=== PATIENT | male | born 1985 | race Caucasian/White ===

== ENCOUNTER 2017-04-06 12:04 | Emergency (ER) | payer MEDICARE, MEDICAID ==
[2017-04-06 12:37] VITALS: BP 129/72
--- NOTE | 2017-04-06 12:54 | UC ---
Ear Complaint HPI - HPI Summary HPI Summary: right ear pain episodic since "age 4." He gets about 5 times a year. NO drainage. no obvious hearing loss. No fever. he had this same problem about 2-3 weeks ago and z pack completely resolved it.. he has never seen an ENT. - History of Current Complaint Chief Complaint: UCEar Stated Complaint: RIGHT EAR PAIN Time Seen by Provider: 04/06/17 12:36 Hx Obtained From: Patient Onset/Duration: Gradual Onset, Lasting Days Severity Initially: Mild Severity Currently: Moderate Aggravating Factors: Nothing Alleviating Factors: OTC Meds Associated Signs/Symptoms: Negative: Hearing Loss, Foreign Body Sensation, Trauma to Ear, Swelling @, URI Symptoms - Allergies/Home Medications Allergies/Adverse Reactions: Allergies Allergy/AdvReac Type Severity Reaction Status Date / Time Cefaclor [From [facility]] Allergy Rash Verified 04/06/17 12:37 Sulfamethoxazole Allergy Rash Verified 04/06/17 12:37 w/Trimethoprim [From [facility]] Home Medications: Home Medications Ibuprofen TAB* [Advil TAB*] 400 mg PO Q6H 04/06/17 [History Confirmed 04/06/17] PMH/Surg Hx/FS Hx/Imm Hx Previously Healthy: No - frequent ear pain. - Surgical History Surgical History: Yes Surgery Procedure, Year, and Place: hernia repair. ear tubes. cyst removed from buttock - Family History Known Family History: Positive: Hypertension - Social History Occupation: Employed Full-time Alcohol Use: None Substance Use Type: None Smoking Status (MU): Never Smoked Tobacco Household Exposure Type: Cigarettes - Immunization History Most Recent Influenza Vaccination: NOT IN 2016 Review of Systems ENT: Ear Ache All Other Systems Reviewed And Are Negative: Yes Physical Exam Triage Information Reviewed: Yes Appearance: Well-Appearing, No Pain Distress, Well-Nourished Vital Signs: Initial Vital Signs Temp 98.7 F 04/06/17 12:30 Pulse 69 04/06/17 12:30 Resp 15 04/06/17 12:30 BP 129/72 04/06/17 12:30 Pulse Ox 100 04/06/17 12:30 Vital Signs Reviewed: Yes Eye Exam: Normal ENT Exam: Normal ENT: Positive: TM dull - right tm dull. No mastoid tenderness or ear tenderness.. Negative: Tonsillar swelling, Tonsillar exudate, Trismus Neck exam: Normal Respiratory Exam: Normal Cardiovascular Exam: Normal Abdominal Exam: Normal Musculoskeletal Exam: Normal Neurological Exam: Normal Psychological Exam: Normal Skin Exam: Normal Ear Complaint Course/Dx - Course Course Of Treatment: ear pain without perforation. NO mastoid tenderness. no fever. there is a thickening and a dullness to the right ear drum. z pack, ciprodex and naproxen. he agrees to f/u with ENT - Differential Dx/Diagnosis Provider Diagnoses: right ear pain. Discharge - Discharge Plan Condition: Good Disposition: HOME Prescriptions: Azithromyxin DESIREE (NF) [Z-Desiree (Zithromax) 250 mg tabs #6] 6 tab PO .TODAY, THEN 1 DAILY #6 tab Ciproflox/Dexameth OTIC.SUSP* [Ciprodex OTIC.SUSP*] 4 drop .SEE ORDER TID #1 btl Naproxen TAB* [Naprosyn 250 mg TAB*] 500 mg PO Q8H PRN #20 tab PRN Reason: Pain Patient Education Materials: Earache (ED) Referrals: Carl Gonzalez MD [Primary Care Provider] - If Needed Darryn Sands MD [Medical Doctor] -
== END 2017-04-06 13:00 | disposition home or self-care (01) ==
LOC: UCCORT 12:04
DX: H92.01 Otalgia, right ear (principal)
CPT/HCPCS: 99212; G0463

== ENCOUNTER 2017-09-07 13:28 | Emergency (ER) | payer MEDICAID, MEDICARE, OTHER ==
[2017-09-07 14:06] VITALS: BP 118/74
--- NOTE | 2017-09-07 15:03 | UC ---
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 Pt states that he wears gloves but they do not keep his hands or arms dry. Pt c/o dry, cracked areas on right hand anterior aspect and multiple dry redned areas on forearms and upper arms. - History of Current Complaint Chief Complaint: UCSkin Time Seen by Provider: 09/07/17 14:55 Stated Complaint: RIGHT HAND/ARM CHEMICAL BURN (WC) Hx Obtained From: Patient Onset/Duration: Gradual Onset, Lasting Days, Still Present Skin Exposure Onset/Duration: Days Ago Timing: Constant Onset Severity: Mild Current Severity: Mild Pain Intensity: 0 Location: Diffuse - upper extremities Aggravating Factor(s): Wet Conditions Alleviating Factor(s): Unknown Associated Signs & Symptoms: Positive: Rash Related History: Possible Reaction to: Latex - Allergy/Home Medications Allergies/Adverse Reactions: Allergies Allergy/AdvReac Type Severity Reaction Status Date / Time MS Cefaclor [From [facility]] Allergy Rash Verified 09/07/17 14:03 MS Sulfamethoxazole Allergy Rash Verified 09/07/17 14:03 w/Trimethoprim [From [facility]] Home Medications: Home Medications NK [No Home Medications Reported] 09/07/17 [History Confirmed 09/07/17] Review of Systems Constitutional: Negative Skin: Rash Eyes: Negative ENT: Negative Respiratory: Negative Cardiovascular: Negative Gastrointestinal: Negative Genitourinary: Negative Motor: Negative Neurovascular: Negative Musculoskeletal: Negative Neurological: Negative Psychological: Negative Is Patient Immunocompromised?: No All Other Systems Reviewed And Are Negative: Yes PMH/Surg Hx/FS Hx/Imm Hx Previously Healthy: Yes - Surgical History Surgical History: Yes Surgery Procedure, Year, and Place: hernia repair. ear tubes. cyst removed from buttock - Family History Known Family History: Positive: Hypertension - Social History Occupation: Employed Full-time Lives: With Family Alcohol Use: Rare Substance Use Type: None Smoking Status (MU): Never Smoked Tobacco Have You Smoked in the Last Year: No Household Exposure Type: Cigarettes - Immunization History Most Recent Influenza Vaccination: NOT IN 2016 Physical Exam Triage Information Reviewed: Yes Appearance: Well-Appearing Vital Signs: Initial Vital Signs Temp 98.5 F 09/07/17 14:00 Pulse 86 09/07/17 14:00 Resp 16 09/07/17 14:00 BP 118/74 09/07/17 14:00 Pulse Ox 100 09/07/17 14:00 Vital Signs Reviewed: Yes Eye Exam: Normal ENT Exam: Normal Neck exam: Normal Respiratory Exam: Normal Cardiovascular Exam: Normal Musculoskeletal Exam: Normal Neurological Exam: Normal Psychological Exam: Normal Skin Exam: Other - 4 cm diater dry skin patch to right hand anterior aspect proximal and lateral aplm. Multiple dry patches on forearms and upper arms. Course/Dx - Course Course Of Treatment: I dsicussed with the pt the need to keep skin moist and dry. I suggested that the pt request better work gear to help protect his skin. - Differential Diagnoses - Skin Complaint Differential Diagnoses: Contact Dermatitis, Tinea, Urticaria - Diagnoses Provider Diagnoses: contact dermatitis upper extremities Discharge - Discharge Plan Condition: Stable Disposition: HOME Patient Education Materials: Contact Dermatitis (ED) Referrals: Carl Gonzalez MD [Primary Care Provider] - If Needed Additional Instructions: Please keep area dry and moisturized. Topical lotions that are recommended are : Cetaphil, Eucerin and vaseline for the worst areas. To prevent worsening of your condition you need protect gear to reduce the risk of worsening of this condition.
== END 2017-09-07 15:11 | disposition home or self-care (01) ==
LOC: UCCORT 13:28
DX: L25.9 Unspecified contact dermatitis, unspecified cause (principal)
CPT/HCPCS: 99211; G0463

== ENCOUNTER 2017-12-19 19:18 | Emergency (ER) | payer BC, OTHER, MEDICAID ==
[2017-12-19 20:34] VITALS: BP 139/74
--- NOTE | 2017-12-19 21:06 | UC ---
Ear Complaint HPI - HPI Summary HPI Summary: Pt with pain in both ears R>L Pt states feels sharp and full. no drainage. No fever, chill. No nicolas, vision change No cough, cp. no abd pain no n/v. pt's medications reviewed this visit - History of Current Complaint Chief Complaint: UCEar Stated Complaint: EAR PAIN Time Seen by Provider: 12/19/17 20:43 Hx Obtained From: Patient Onset/Duration: Gradual Onset, Lasting Days Severity Initially: Mild Severity Currently: Mild Pain Intensity: 3 Pain Scale Used: 0-10 Numeric Aggravating Factors: Nothing Alleviating Factors: Nothing - Allergies/Home Medications Allergies/Adverse Reactions: Allergies Allergy/AdvReac Type Severity Reaction Status Date / Time cefaclor [From [facility]] Allergy Rash Verified 12/19/17 20:36 sulfamethoxazole Allergy Rash Verified 12/19/17 20:36 [From [facility]] trimethoprim [From [facility]] Allergy Rash Verified 12/19/17 20:36 PMH/Surg Hx/FS Hx/Imm Hx Previously Healthy: Yes - Surgical History Surgical History: Yes Surgery Procedure, Year, and Place: hernia repair. ear tubes. cyst removed from buttock - Family History Known Family History: Positive: Hypertension - Social History Occupation: Employed Part-time Lives: With Family Alcohol Use: Occasionally Substance Use Type: None Smoking Status (MU): Never Smoked Tobacco Have You Smoked in the Last Year: No Household Exposure Type: Cigarettes - Immunization History Most Recent Influenza Vaccination: NOT IN 2015 Review of Systems Constitutional: Negative Skin: Negative Eyes: Negative ENT: Ear Ache Respiratory: Negative Cardiovascular: Negative All Other Systems Reviewed And Are Negative: Yes Physical Exam Triage Information Reviewed: Yes Appearance: Well-Appearing, No Pain Distress, Well-Nourished Vital Signs: Initial Vital Signs Temp 99.4 F 12/19/17 20:28 Pulse 80 12/19/17 20:28 Resp 16 12/19/17 20:28 BP 139/74 12/19/17 20:28 Pulse Ox 100 12/19/17 20:28 Vital Signs Reviewed: Yes Eye Exam: Normal Eyes: Positive: Conjunctiva Clear ENT Exam: Normal ENT: Positive: Hearing grossly normal, Pharynx normal, Other - Pt with soft cerumen impaction bilaterally able to use currette to manyally disimpact b/l Dental Exam: Normal Neck exam: Normal Neck: Positive: 1 Respiratory Exam: Normal Respiratory: Positive: Chest non-tender, Lungs clear, Normal breath sounds, No respiratory distress, No accessory muscle use Cardiovascular Exam: Normal Cardiovascular: Positive: RRR, No Murmur Abdominal Exam: Normal Abdomen Description: Positive: Nontender, No Organomegaly, Soft Musculoskeletal Exam: Normal Neurological Exam: Normal Psychological Exam: Normal Skin Exam: Normal Ear Complaint Course/Dx - Course Course Of Treatment: pt presents with complaint b/l ear pain L>R. pt with bilateral cerumen impaction - removed manually. pt reports resolution of discomfort, symptoms. Will rx debrox - Differential Dx/Diagnosis Provider Diagnoses: cerumen impaction Discharge - Sign-Out/Discharge Documenting (check all that apply): Discharge/Admit/Transfer - Discharge Plan Condition: Stable Disposition: HOME Prescriptions: Carbamide Peroxide 6.5% OTIC* [DEBROX 6.5% Otic*] 3 drop BOTH EARS BID #1 bottle Patient Education Materials: Cerumen Impaction (ED) Referrals: Carl Gonzalez MD [Primary Care Provider] - Additional Instructions: 5 drops both ears every other days Okay to alternate ibuprofen (advil, motrin) and tylenol every 3hours for pain. Take with food. do NOT take for more than 4-5 days contact your doctor or return with questions or concerns - Billing Disposition and Condition Condition: STABLE Disposition: HOME
== END 2017-12-19 21:15 | disposition home or self-care (01) ==
LOC: UCCORT 19:18
DX: H92.09 Otalgia, unspecified ear (principal)
CPT/HCPCS: 99212; G0463

== ENCOUNTER 2018-05-27 18:58 | Emergency (ER) | payer BC, OTHER, MEDICAID ==
[2018-05-27 19:22] VITALS: BP 120/73
--- NOTE | 2018-05-27 19:52 | UC ---
Ear Complaint HPI - HPI Summary HPI Summary: Right ear pain off/ on over the last 2 weeks. Does have allergies. No fevers. - History of Current Complaint Chief Complaint: UCEar Stated Complaint: RIGHT EAR PAIN Time Seen by Provider: 05/27/18 19:45 Hx Obtained From: Patient Onset/Duration: Gradual Onset, Lasting Weeks - 2 Severity Initially: Mild Severity Currently: Moderate Pain Intensity: 6 Aggravating Factors: Nothing Alleviating Factors: Nothing Associated Signs/Symptoms: Negative: Discharge, Hearing Loss, Foreign Body Sensation, Trauma to Ear, Swelling @, URI Symptoms Related History: Seasonal Allergies - Allergies/Home Medications Allergies/Adverse Reactions: Allergies Allergy/AdvReac Type Severity Reaction Status Date / Time cefaclor [From [facility]] Allergy Rash Verified 05/27/18 19:16 sulfamethoxazole Allergy Rash Verified 05/27/18 19:16 [From [facility]] trimethoprim [From [facility]] Allergy Rash Verified 05/27/18 19:16 Home Medications: Home Medications Acetaminophen [Acetaminophen Extra Strength] 1,000 mg PO ONCE PRN 05/27/18 [ History Confirmed 05/27/18] PMH/Surg Hx/FS Hx/Imm Hx Previously Healthy: Yes - Surgical History Surgical History: Yes Surgery Procedure, Year, and Place: hernia repair. ear tubes. cyst removed from buttock - Family History Known Family History: Positive: Hypertension Negative: Cardiac Disease, Diabetes - Social History Occupation: Employed Full-time Lives: Alone Alcohol Use: Rare Substance Use Type: None Smoking Status (MU): Never Smoked Tobacco Have You Smoked in the Last Year: No Household Exposure Type: Cigarettes - Immunization History Most Recent Influenza Vaccination: NOT IN 2016 Review of Systems ENT: Ear Ache, Nasal Discharge Respiratory: Cough - only when allergies are bad Is Patient Immunocompromised?: No All Other Systems Reviewed And Are Negative: Yes Physical Exam Triage Information Reviewed: Yes Appearance: Well-Appearing, No Pain Distress, Well-Nourished Vital Signs: Initial Vital Signs Temp 99.3 F 05/27/18 19:17 Pulse 84 05/27/18 19:17 Resp 14 05/27/18 19:17 BP 120/73 05/27/18 19:17 Pulse Ox 98 05/27/18 19:17 Vital Signs Reviewed: Yes Eyes: Positive: Conjunctiva Clear ENT: Positive: Pharynx normal, Nasal congestion - with allergic changes., TMs normal Neck exam: Normal Respiratory Exam: Normal Cardiovascular Exam: Normal Musculoskeletal Exam: Normal Neurological Exam: Normal Psychological Exam: Normal Skin Exam: Normal Ear Complaint Course/Dx - Differential Dx/Diagnosis Differential Diagnosis/HQI/PQRI: Otitis Externa, Otitis Media, URI Provider Diagnoses: Right ear pain. Allergic rhinitis. Eustachian tube dysfunction Discharge - Sign-Out/Discharge Documenting (check all that apply): Patient Departure All imaging exams completed and their final reports reviewed: No Studies - Discharge Plan Condition: Stable Disposition: HOME Prescriptions: Fluticasone NASAL SPRAY 50MCG* [Flonase NASAL SPRAY 50MCG*] 2 spray BOTH NARES DAILY #1 btl Montelukast Sodium TAB* [Singulair 10 MG TAB*] 10 mg PO BEDTIME #30 tab Patient Education Materials: Allergic Rhinitis (ED), Earache (ED) Referrals: Carl Gonzalez MD [Primary Care Provider] - Additional Instructions: NEILMED SINUS RINSE: CHECK OUT AT [employer] Saline nasal wash helps with mucous, allergies and congestion. It can be used up to twice a day or only as needed. Use lukewarm tap water. It does not have to be sterilized or distilled water. Do 1/3 on each side and snort out of both nostrils. Repeat the process with 1/6 of the bottle on each side with snorting in between to finish the solution in the bottle EUSTATION TUBE DYSFUNCTION: The tube that allows the middle ear to equalize the pressure with the outside air is blocked. This can be due to colds, allergies, smoke, or other irritants. Short term treatment can include Afrin, sudafed and nasal cortisone sprays for allergies. - Billing Disposition and Condition Condition: STABLE Disposition: Home
== END 2018-05-27 20:36 | disposition home or self-care (01) ==
LOC: UCCORT 18:58
DX: H92.01 Otalgia, right ear (principal); H69.81 Other specified disorders of Eustachian tube, right ear; Z88.1 Allergy status to other antibiotic agents; J30.9 Allergic rhinitis, unspecified
CPT/HCPCS: 99212; G0463

== ENCOUNTER 2018-09-27 13:01 | Emergency (ER) | payer BC, OTHER, MEDICAID ==
[2018-09-27 13:23] VITALS: BP 127/77
--- NOTE | 2018-09-27 13:34 | UC ---
Throat Pain/Nasal Andrae HPI - History of Current Complaint Chief Complaint: UCRespiratory Stated Complaint: SORE THROAT, COUGH, HEADACHE Time Seen by Provider: 09/27/18 13:32 Hx Obtained From: Patient Onset/Duration: Gradual Onset Severity: Mild Pain Intensity: 2 Cough: Nonproductive Associated Signs & Symptoms: Positive: Negative - Epiglottits Risk Factors Epiglottis Risk Factors: Negative - Allergies/Home Medications Allergies/Adverse Reactions: Allergies Allergy/AdvReac Type Severity Reaction Status Date / Time cefaclor [From Ceclor] Allergy Rash Verified 09/27/18 13:14 sulfamethoxazole Allergy Rash Verified 09/27/18 13:14 [From [facility]] trimethoprim [From [facility]] Allergy Rash Verified 09/27/18 13:14 Home Medications: Home Medications Ibuprofen TAB* [Motrin TAB* 400 MG] 400 mg PO Q6H PRN 09/27/18 [History Confirmed 09/27/18] PMH/Surg Hx/FS Hx/Imm Hx Previously Healthy: Yes - Surgical History Surgical History: Yes Surgery Procedure, Year, and Place: umbilical hernia repair. ear tubes. cyst removed from buttock - Family History Known Family History: Positive: Hypertension Negative: Cardiac Disease, Diabetes - Social History Occupation: Employed Part-time Alcohol Use: Rare Substance Use Type: None Smoking Status (MU): Never Smoked Tobacco Have You Smoked in the Last Year: No Household Exposure Type: Cigarettes - Immunization History Most Recent Influenza Vaccination: NOT IN 2016 Review of Systems All Other Systems Reviewed And Are Negative: Yes Constitutional: Positive: Negative Skin: Positive: Negative Eyes: Positive: Negative ENT: Positive: Negative, Sore Throat Respiratory: Positive: Negative Cardiovascular: Positive: Negative Gastrointestinal: Positive: Negative Genitourinary: Positive: Negative Motor: Positive: Negative Neurovascular: Positive: Negative Musculoskeletal: Positive: Negative Neurological: Positive: Negative Physical Exam Triage Information Reviewed: Yes Appearance: Well-Appearing, No Pain Distress - Requests note for work, Well- Nourished Vital Signs: Initial Vital Signs Temp 99.1 F 09/27/18 13:17 Pulse 95 09/27/18 13:17 Resp 22 09/27/18 13:17 BP 127/77 09/27/18 13:17 Pulse Ox 100 09/27/18 13:17 Vital Signs Reviewed: Yes Eye Exam: Normal ENT: Positive: Pharyngeal erythema, TMs normal. Negative: Tonsillar swelling, Tonsillar exudate, Trismus Neck exam: Normal Neck: Positive: Supple Respiratory Exam: Normal Respiratory: Positive: Lungs clear, Normal breath sounds Cardiovascular Exam: Normal Cardiovascular: Positive: RRR, No Murmur Abdominal Exam: Normal Abdomen Description: Positive: Nontender, No Organomegaly, Soft Bowel Sounds: Positive: Present Musculoskeletal Exam: Normal Musculoskeletal: Positive: Strength Intact, ROM Intact Neurological Exam: Normal Neurological: Positive: Alert Psychological Exam: Normal Skin Exam: Normal Throat Pain/Nasal Course/Dx - Course Course Of Treatment: Rapid strep test negative. Pt has been comfortable here. He is to do warm, salt water gargles, throat lozenges prn, Tylenol/ibuprofen as directed, increase fluids. Follow up with Primary Care Provider in 2-3 days if no improvement. - Differential Dx/Diagnosis Differential Diagnosis/HQI/PQRI: Pharyngitis, URI Provider Diagnosis: Pharyngitis Discharge - Sign-Out/Discharge Documenting (check all that apply): Patient Departure All imaging exams completed and their final reports reviewed: No Studies - Discharge Plan Condition: Good Disposition: HOME Patient Education Materials: Pharyngitis (ED) Forms: *Work Release Referrals: Carl Gonzalez MD [Primary Care Provider] - Additional Instructions: Warm, salt water gargles, throat lozenges, follow up with your doctor if no improvement in 3-4 days. - Billing Disposition and Condition Condition: GOOD Disposition: Home
== END 2018-09-27 14:00 | disposition home or self-care (01) ==
LOC: UCCORT 13:01
DX: J02.9 Acute pharyngitis, unspecified (principal); Z88.1 Allergy status to other antibiotic agents; Z88.2 Allergy status to sulfonamides
CPT/HCPCS: 87651; 99211; G0463

== ENCOUNTER 2019-05-08 20:57 | Emergency (ER) | payer BC, MEDICAID ==
[2019-05-08 21:08] VITALS: BP 134/76
--- NOTE | 2019-05-08 21:40 | UC ---
Skin Complaint HPI - HPI Summary HPI Summary: Patient is a 34yo male presenting with rash on his right arm and left hand/arm x2 weeks. States it is mostly his right arm. States that he first noticed it after mowing the lawn. Denies pain. Notes itching of only one of the spots on his rash. Denies drainage. Denies fever, chills, n/v/d. Denies anything like this in the past. Denies new products. 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 - History of Current Complaint Chief Complaint: UCSkin Stated Complaint: RASH Hx Obtained From: Patient Onset/Duration: Sudden Onset, Lasting Weeks Pain Intensity: 0 - Allergy/Home Medications Allergies/Adverse Reactions: Allergies Allergy/AdvReac Type Severity Reaction Status Date / Time cefaclor [From [facility]] Allergy Rash Verified 05/08/19 21:07 sulfamethoxazole Allergy Rash Verified 05/08/19 21:07 [From [facility]] trimethoprim [From ] Allergy Rash Verified 05/08/19 21:07 PMH/Surg Hx/FS Hx/Imm Hx Previously Healthy: Yes - Surgical History Surgical History: Yes Surgery Procedure, Year, and Place: umbilical hernia repair. ear tubes. cyst removed from buttock - Family History Known Family History: Positive: Hypertension Negative: Cardiac Disease, Diabetes - Social History Alcohol Use: Rare Substance Use Type: None Smoking Status (MU): Never Smoked Tobacco Have You Smoked in the Last Year: No Household Exposure Type: Cigarettes - Immunization History Most Recent Influenza Vaccination: NOT IN 2016 Review of Systems All Other Systems Reviewed And Are Negative: Yes Constitutional: Positive: Negative. Negative: Fever, Chills, Fatigue Skin: Positive: Rash Eyes: Positive: Negative ENT: Positive: Negative Respiratory: Positive: Negative. Negative: Shortness Of Breath, Cough Cardiovascular: Positive: Negative Gastrointestinal: Positive: Negative Neurovascular: Positive: Negative Musculoskeletal: Positive: Negative Neurological: Positive: Negative. Negative: Headache, Paresthesia, Numbness Physical Exam Triage Information Reviewed: Yes Appearance: Well-Appearing, No Pain Distress, Well-Nourished Vital Signs: Initial Vital Signs Temp 98.9 F 05/08/19 21:04 Pulse 75 05/08/19 21:04 Resp 18 05/08/19 21:04 BP 134/76 05/08/19 21:04 Pulse Ox 100 05/08/19 21:04 Vital Signs Reviewed: Yes Eyes: Positive: Conjunctiva Clear ENT: Positive: Hearing grossly normal Neck: Positive: Supple Respiratory: Positive: No respiratory distress Cardiovascular: Positive: Pulses Normal, Brisk Capillary Refill Neurological: Positive: Alert Psychological: Positive: Age Appropriate Behavior Skin: Positive: Other - multiple 1-2mm pustles noted on dorsal and ventral left forarm, some appear to have drained and scabbed over. resembles folliculitis. there are a couple that are surrounded by erythema, suggesting infection. two pustules noted on right dorsal hand. no tenderness to palpation of pustules. no fluctuance noted. Course/Dx - Course Course Of Treatment: Discussed with patient possible folliculitis and that there in concern for infection. Treated patient with doxycycline (allergies to cephalosporins and sulfa drugs) for cellulitis, but strongly encouraged to follow up with PCP or rehab nursing tech for further evaluation of the lesions. Patient voiced understanding and agreed to the treatment plan. - Diagnoses Provider Diagnosis: Cellulitis, Pustules determined by examination Discharge ED - Sign-Out/Discharge Documenting (check all that apply): Patient Departure All imaging exams completed and their final reports reviewed: No Studies - Discharge Plan Condition: Stable Disposition: HOME Prescriptions: DOXYcycline CAP(*) [DOXYcycline 100MG CAP(*)] 100 mg PO DAILY #7 cap Patient Education Materials: Cellulitis (ED), Folliculitis (ED) Forms: *Work Release Referrals: Carl Gonzalez MD [Primary Care Provider] - As Soon As Possible Gavin Echevarria MD [Medical Doctor] - As Soon As Possible Additional Instructions: As discussed, it appears you may have folliculitis and that it may have prgressed to a skin infection. Take doxycycline as prescribed for the treatment of your skin infection. Keep the area as clean and dry as possible. Follow up with your primary care physician or the rehab nursing tech referral as listed below if your symptoms persist or worsen. Go to the emergency room if you experience fever, increasing redness and warmth to the area, drainage, or nausea and vomiting. - Billing Disposition and Condition Condition: STABLE Disposition: Home - Attestation Statements Provider Attestation: I was available for consult. This patient was seen by the CECELIA. The patient was not presented to, seen by, or examined by me. -Aleks
== END 2019-05-08 21:51 | disposition home or self-care (01) ==
LOC: UCCORT 20:57
DX: L03.113 Cellulitis of right upper limb (principal); L08.9 Local infection of the skin and subcutaneous tissue, unspecified; Z88.1 Allergy status to other antibiotic agents; Z88.2 Allergy status to sulfonamides
CPT/HCPCS: 99212; G0463

== ENCOUNTER 2019-10-12 10:00 | Emergency (ER) | payer BC, MEDICAID ==
[2019-10-12 10:35] VITALS: BP 112/85
--- NOTE | 2019-10-12 10:58 | UC ---
Ear Complaint HPI - HPI Summary HPI Summary: 34 yo male with right otalgia and decreased hearing sneezing and runny nose x 1 week headache (recently quite caffeine) no fever - History of Current Complaint Chief Complaint: UCGeneralIllness Stated Complaint: RIGHT EAR Time Seen by Provider: 10/12/19 10:46 Hx Obtained From: Patient Onset/Duration: Gradual Onset, Lasting Hours Severity Initially: Mild Severity Currently: Mild Pain Intensity: 2 Pain Scale Used: 0-10 Numeric Aggravating Factors: Nothing Alleviating Factors: Nothing Associated Signs/Symptoms: Positive: Hearing Loss, URI Symptoms Related History: Prior ENT Surgery - PETs - Allergies/Home Medications Allergies/Adverse Reactions: Allergies Allergy/AdvReac Type Severity Reaction Status Date / Time cefaclor [From Ceclor] Allergy Rash Verified 10/12/19 10:22 sulfamethoxazole Allergy Rash Verified 10/12/19 10:22 [From Septra] trimethoprim [From Septra] Allergy Rash Verified 10/12/19 10:22 Home Medications: Home Medications Fluticasone NASAL SPRAY 50MCG* [Flonase NASAL SPRAY 50MCG*] 2 spray BOTH NARES BID #1 btl 10/12/19 [Rx] Naproxen [Naproxen 500 mg tab] 500 mg PO BID PRN #20 tablet 10/12/19 [Rx] PMH/Surg Hx/FS Hx/Imm Hx Previously Healthy: Yes - Surgical History Surgical History: Yes Surgery Procedure, Year, and Place: umbilical hernia repair. ear tubes. cyst removed from buttock - Family History Known Family History: Positive: Hypertension Negative: Cardiac Disease, Diabetes - Social History Alcohol Use: Rare Substance Use Type: Excessive Caffeine Smoking Status (MU): Never Smoked Tobacco Have You Smoked in the Last Year: No Household Exposure Type: Cigarettes - Immunization History Most Recent Influenza Vaccination: NOT IN 2016 Review of Systems All Other Systems Reviewed And Are Negative: Yes Constitutional: Positive: Negative Skin: Positive: Negative Eyes: Positive: Negative ENT: Positive: Ear Ache, Nasal Discharge, Sinus Congestion Respiratory: Positive: Negative Cardiovascular: Positive: Negative Gastrointestinal: Positive: Negative Genitourinary: Positive: Negative Motor: Positive: Negative Neurovascular: Positive: Negative Musculoskeletal: Positive: Negative Neurological/Mental Status: Positive: Headache Physical Exam Triage Information Reviewed: Yes Appearance: Well-Appearing, No Pain Distress, Well-Nourished Vital Signs: Initial Vital Signs Temp 98 F 03/06/20 10:22 Pulse 83 10/12/19 10:22 Resp 17 10/12/19 10:22 BP 112/85 10/12/19 10:22 Pulse Ox 99 10/12/19 10:22 Vital Signs Reviewed: Yes Eyes: Positive: Conjunctiva Clear ENT: Positive: Hearing grossly normal, Nasal congestion. Negative: TMs normal - Right TM retracted Neck: Positive: Supple, Nontender, No Lymphadenopathy Respiratory: Positive: Lungs clear, Normal breath sounds, No respiratory distress, No accessory muscle use Cardiovascular: Positive: RRR, No Murmur Abdomen Description: Positive: Nontender, No Organomegaly Musculoskeletal: Positive: ROM Intact, No Edema Neurological: Positive: Alert Psychological Exam: Normal Skin Exam: Normal Ear Complaint Course/Dx - Differential Dx/Diagnosis Provider Diagnosis: Headache, Right serous otitis media Discharge ED - Sign-Out/Discharge Documenting (check all that apply): Patient Departure All imaging exams completed and their final reports reviewed: No Studies - Discharge Plan Condition: Stable Disposition: HOME Prescriptions: Fluticasone NASAL SPRAY 50MCG* [Flonase NASAL SPRAY 50MCG*] 2 spray BOTH NARES BID #1 btl Naproxen [Naproxen 500 mg tab] 500 mg PO BID PRN #20 tablet PRN Reason: Pain Patient Education Materials: Serous Otitis Media (ED) Forms: *Work Release Referrals: Carl Gonzalez MD [Primary Care Provider] - 5 Days (if not better) - Billing Disposition and Condition Condition: STABLE Disposition: Home
== END 2019-10-12 11:10 | disposition home or self-care (01) ==
LOC: UCCORT 10:00
DX: H65.91 Unspecified nonsuppurative otitis media, right ear (principal); R51 Headache; R09.89 Other specified symptoms and signs involving the circulatory and respiratory systems; R09.81 Nasal congestion; Z88.1 Allergy status to other antibiotic agents; Z88.2 Allergy status to sulfonamides
CPT/HCPCS: 99212; G0463

== ENCOUNTER 2019-11-20 09:11 | Emergency (ER) | payer BC, MEDICAID ==
[2019-11-20 09:30] VITALS: BP 110/70
--- NOTE | 2019-11-20 10:13 | UC ---
Dental HPI - HPI Summary HPI Summary: 34 yo with onset of painless swelling in the left cheek, with increase in swelling of the left lower lid today. He has no fever or diplopia. He does not have dental pain, heat or cold sensitivity, but does have hx of poor dentition. - History of Current Complaint Chief Complaint: UCGeneralIllness Stated Complaint: L SIDE FACIAL SWELLING Time Seen by Provider: 11/20/19 09:50 Hx Obtained From: Patient Onset/Duration: Gradual Onset, Lasting Days - 2 Severity: Mild Pain Intensity: 0 Aggravating Factor(s): Nothing Alleviating Factor(s): Nothing Related History: Previous Dental Care on Same Tooth - Allergies/Home Medications Allergies/Adverse Reactions: Allergies Allergy/AdvReac Type Severity Reaction Status Date / Time cefaclor [From [facility]] Allergy Rash Verified 11/20/19 09:24 sulfamethoxazole Allergy Rash Verified 11/20/19 09:24 [From Septra] trimethoprim [From Septra] Allergy Rash Verified 11/20/19 09:24 Home Medications: Home Medications Clindamycin Cap(NF) [Clindamycin Cap 300 mg Cap(NF)] 300 mg PO QID #28 cap 11/19 [Rx] Ibuprofen TAB* [Advil TAB*] 200 mg PO Q6H PRN 11/20/19 [History Confirmed ] PMH/Surg Hx/FS Hx/Imm Hx Previously Healthy: Yes - Surgical History Surgical History: Yes Surgery Procedure, Year, and Place: umbilical hernia repair. ear tubes. cyst removed from buttock - Family History Known Family History: Positive: Hypertension, Other - mother has auto-immune disorder Negative: Cardiac Disease, Diabetes - Social History Occupation: Employed Full-time - currently on [employer] Lives: With Family Alcohol Use: Rare Substance Use Type: Excessive Caffeine Smoking Status (MU): Never Smoked Tobacco Have You Smoked in the Last Year: No Household Exposure Type: Cigarettes - Immunization History Most Recent Influenza Vaccination: NOT IN 2016 Review of Systems All Other Systems Reviewed And Are Negative: Yes Constitutional: Positive: Negative Skin: Positive: Negative Eyes: Negative: Blurred Vision, Diplopia, Drainage, Eye Redness, Photophobia ENT: Positive: Other - swelling left cheek Respiratory: Positive: Negative Cardiovascular: Positive: Negative Gastrointestinal: Positive: Negative Genitourinary: Positive: Negative Motor: Positive: Negative Neurovascular: Positive: Negative Musculoskeletal: Positive: Negative Neurological/Mental Status: Positive: Negative Psychological: Positive: Negative Is Patient Immunocompromised?: No Physical Exam Triage Information Reviewed: Yes Appearance: Well-Appearing, No Pain Distress Vital Signs: Initial Vital Signs Temp 98.1 F 11/20/19 09:25 Pulse 72 11/20/19 09:25 Resp 17 11/20/19 09:25 BP 110/70 11/20/19 09:25 Pulse Ox 98 11/20/19 09:25 Eye Exam: Other - JESUS, normal eom, no photophobia . Eyes: Positive: Conjunctiva Clear ENT: Positive: Pharynx normal, TMs normal, Other - firm swelling in left cheek, extending to the left lower eye lid with mild erythema of the lower lid. Dental: Positive: Gross Decay/Caries @ - 14, Other: - diffuse dental decay, with a number of previous dental extractions. Negative: Percussion Tenderness @ Neck: Positive: Supple, Nontender, No Lymphadenopathy Respiratory Exam: Normal Cardiovascular Exam: Normal Musculoskeletal Exam: Normal Neurological Exam: Normal Psychological Exam: Normal Skin Exam: Normal Images Dental: 1 - decay, inflammation of the gum line Dental Complaint Course/Dx - Course Course Of Treatment: despite lack of pain, suspect dental origin of pain. Will begin clindamycin and urged dental follow up. - Differential Dx/Diagnosis Differential Diagnosis/Dx: Dental Caries, Fractured Tooth, Other - cellulitisl Provider Diagnosis: Dental abscess Discharge ED - Sign-Out/Discharge Documenting (check all that apply): Patient Departure All imaging exams completed and their final reports reviewed: No Studies - Discharge Plan Condition: Stable Disposition: HOME Prescriptions: Clindamycin Cap(NF) [Clindamycin Cap 300 mg Cap(NF)] 300 mg PO QID #28 cap Patient Education Materials: Dental Abscess (ED) Referrals: Carl Gonzalez MD [Primary Care Provider] - Additional Instructions: Although you do not have pain, the likely source of the infection causing the swelling in your left cheek is dental. Begin clindamycin, and ensure that you arrange a dental follow up visit. If you have increasing pain or swelling around the eye, or any visual changes, please go to the emergency room for evaluation. - Billing Disposition and Condition Condition: STABLE Disposition: Home
== END 2019-11-20 10:25 | disposition home or self-care (01) ==
LOC: UCCORT 09:11
DX: K04.7 Periapical abscess without sinus (principal); K02.9 Dental caries, unspecified; Z88.1 Allergy status to other antibiotic agents
CPT/HCPCS: 99212; G0463